=== PATIENT | female | born 2000 | race Caucasian/White ===

== ENCOUNTER 2020-06-26 08:19 | Inpatient (IN) | payer OTHER ==
[~2020-06-26] VITALS: Ht 157.5 cm; Wt 65.8 kg
[2020-06-26] MEDS ORDERED: ACET325T53 PO (08:32)
--- NOTE | 2020-06-26 08:39 | NUR ---
SUPERVISOR BAKERY SANITATION NOTES RECEIVED PT FROM AMBULANCE STAFF FROM [facility], ASSISTED TO HER ROOM, MADE COMFORTABLE, ROOM SET UP ORIENTATION PROVIDED TO PT, VERBALIZED UNDERSTANDING, PT STATES SHE FEELS BETTER, NO COMPLAINT OF PAIN, NO COMPLAINT OF DIZZINESS, ABLE TO WALK TO THE BATHROOM WITH SLOW AND STEADY GAIT, NEEDS ATTENDED.
[2020-06-26 09:00] VITALS: BP 106/68
--- NOTE | 2020-06-26 09:35 | NUR ---
MELT SUPERINTENDANT NOTES PT NSR ON THE MONITOR, DR. MARINO AT BEDSIDE.
[2020-06-26] MEDS ORDERED: DOCUSATE SODIUM 100 MG CAPSULE PO PRN (10:00)
[2020-06-26] MEDS ORDERED: MAG HYDROX/AL HYDROX/SIMETH 30 ML UDC PO PRN (10:00)
[2020-06-26] MEDS ORDERED: IV NS 0.9% 500 ML IV PRN (10:00)
[2020-06-26 11:21] LABS: BASOPHILS % (AUTO) 0.5 % (0.0-2.0); EOSINOPHILS % (AUTO) 0.6 % (0.0-6.0); HEMATOCRIT 42 % (33-45); HEMOGLOBIN 14.1 g/dL (11.5-14.8); LYMPHOCYTES # (AUTO) 1.9 /CMM (0.8-4.8); LYMPHOCYTES % (AUTO) 32.6 % (20.0-44.0); MEAN CORPUSCULAR HGB CONC 33 g/dl (31.0-36.0); MEAN CORPUSCULAR VOLUME 92 fL (82-100); MONOCYTES # (AUTO) 0.5 /CMM (0.1-1.30); MONOCYTES % (AUTO) 8.2 % (2.0-12.0); NEUTROPHILS # (AUTO) 3.5 /CMM (1.8-8.9); NEUTROPHILS % (AUTO) 58.1 % (43.0-81.0); PLATELET COUNT (AUTO) 246 /CMM (150-450); RED BLOOD CELL COUNT(AUTO) 4.62 MIL/uL (4.0-5.2)
[2020-06-26 11:33] LABS: CALCIUM, SERUM 9.3 mg/dL (8.5-10.1); CREATININE 0.7 mg/dL (0.6-1.3)
[2020-06-26 11:39] LABS: ALBUMIN 4.1 g/dL (3.4-5.0); BILIRUBIN,TOTAL 0.5 mg/dL (0.2-1.0); MAGNESIUM 1.9 mg/dL (1.8-2.4); PHOSPHORUS 3.8 mg/dL (2.5-4.9); TOTAL PROTEIN, SERUM 7.7 g/dL (6.4-8.2)
[2020-06-26 12:00] VITALS: BP_SYST 102; BP_SYST 103; BP_SYST 110; BP_DIAS 57; BP_DIAS 61; BP_DIAS 62
--- NOTE | 2020-06-26 12:50 | NUR ---
TUBE CUTTER OPERATOR NOTES PT SEEN BY DR. TALAMANTES, PLAN OF CARE DISCUSSED WITH PT, VERBALIZED UNDERSTANDING, STAT EKG DONE, RESULTS RELAYED TO DR. MARINO, NO NEW ORDER. PT IS AWAKE, NO COMPLAINTS, NOT IN DISTRESS.
[2020-06-26] MEDS: IV NS 0.9% 1,000 ML IV PRN (13:19)
[2020-06-26 16:00] VITALS: BP 88/50
[2020-06-26] MEDS: ACETAMINOPHEN 325 MG TABLET PO PRN (16:36)
[2020-06-26 18:04] LABS: BILIRUBIN,URINE NEGATIVE (NEGATIVE); COLOR,URINE YELLOW (YELLOW); LEUKOCYTE ESTERASE ,URINE NEGATIVE (NEGATIVE); NITRITE, URINE NEGATIVE (NEGATIVE); PH,URINE 6.5 (5.0-8.0); PROTEIN,URINE NEGATIVE (NEGATIVE); UGLUCOSE NEGATIVE (NEGATIVE); UROBILINOGEN,URINE 0.2 EU/dL (0.2)
--- NOTE | 2020-06-26 18:04 | NUR ---
PROFESSOR OF MATHEMATICS NOTES PT IN BED, AWAKE, ALERT AND ORIENTED, EATING DINNER, NO COMPLAINT AT THIS TIME, RESPIRATIONS NORMAL, IV FLUIDS INFUSING WELL, IV SITE AT RIGHT A/C INTACT AND PATENT, NO S/S OF INFILTRATION NOTED, ABLE TO WALK TO THE BATHROOM WITH SLOW ABND STEADY GAIT, VITALS TAKEN AND RECORDED, ALL NEEDS ATTENDED.
[2020-06-26 18:37] LABS: BACTERIA,URINE Few /HPF (None Seen); SQUAMOUS EPITHELIAL CELL,UR Few /HPF (None Seen); WBC,URINE 0-2 /HPF (0-3)
--- NOTE | 2020-06-26 19:45 | NUR ---
TELE/RN OPENING NOTE RECEIVED PATIENT RESTING IN BED. ALERT AND ORIENTED X 4. ABLE TO MAKE NEEDS KNOWN. NO COMPLAINTS OF PAIN AT THIS TIME. CONTINUES ON TELE MONITOR WITH READING OF SR HR 70-80. IV ACCESS TO RIGHT AC INTACT AND PATENT. CONTINUES ON NS @ 75ML/HR. NO COMPLAINTS OF DIZZINESS OR NAUSEA NOTED. CALL LIGHT WITHIN REACH. ASPIRATION, FALL AND SAFETY PRECAUTIONS MAINTAINED. WILL CONTINUE TO MONITOR.
[2020-06-26 20:00] VITALS: BP 85/64
--- NOTE | 2020-06-26 21:30 | NUR ---
TELE/RN NOTE PATIENT NOTED WITH BP OF 87/50. HR AND O2 SAT STABLE. NO COMPLAINTS OF DIZZINESS AT THIS TIME. NOTIFIED MACHINE PECAN PICKER JAVY WITH NEW ORDERS FOR IV BOLUS NS 1L X 1. ORDER INPUTTED AND CARRIED OUT.
[2020-06-26] MEDS ORDERED: IV NS 0.9% 1,000 ML IV ONE (21:45)
--- NOTE | 2020-06-26 22:45 | NUR ---
TELE/RN NOTE BP RECHECK AFTER BOLUS 113/61. COMPLAINTS OF HEADACHE AND NAUSEA. NO VOMITING EPISODES AT THIS TIME. WILL NOTIFY SALESPERSON AUTOMOBILES JAVY.
[2020-06-26] MEDS ORDERED: MORPHINE SULFATE INJ 2 MG/ML DISP.SYRIN IVP PRN (23:15)
--- NOTE | 2020-06-26 23:15 | NUR ---
TELE/RN NOTE NEW ORDER FOR MORPHINE IVP Q4HRS PRN FOR PAIN. ORDER INPUTTED AND CARRIED OUT.
[2020-06-27] VITALS: BP 115/62
[2020-06-27 04:00] VITALS: BP 89/60
--- NOTE | 2020-06-27 06:01 | NUR ---
TELE/RN CLOSING NOTE PATIENT CURRENTLY RESTING IN BED. ALERT AND ORIENTED X 4. ABLE TO MAKE NEEDS KNOWN. NO COMPLAINTS OF PAIN AT THIS TIME. MANUAL BP @ 0600 WAS 101/56. NO COMPLAINTS OF DIZZINESS, SOB OR NAUSEA. IV ACCESS TO RIGHT AC INTACT AND PATENT. NS RUNNING AT 75ML/HR. CALL LIGHT WITHIN REACH. ASPIRATION, FALL AND SAFETY PRECAUTIONS MAINTAINED. WILL ENDORSE PLAN OF CARE TO ONCOMING SHIFT.
[2020-06-27] MEDS: IV NS 0.9% 1,000 ML IV PRN (06:26)
[2020-06-27 06:30] LABS: BASOPHILS % (AUTO) 0.7 % (0.0-2.0); EOSINOPHILS % (AUTO) 2.1 % (0.0-6.0); HEMATOCRIT 38 % (33-45); HEMOGLOBIN 12.9 g/dL (11.5-14.8); LYMPHOCYTES # (AUTO) 2.4 /CMM (0.8-4.8); LYMPHOCYTES % (AUTO) 44.1 % (20.0-44.0); MEAN CORPUSCULAR HGB CONC 34 g/dl (31.0-36.0); MEAN CORPUSCULAR VOLUME 93 fL (82-100); MONOCYTES # (AUTO) 0.5 /CMM (0.1-1.30); MONOCYTES % (AUTO) 9.7 % (2.0-12.0); NEUTROPHILS # (AUTO) 2.4 /CMM (1.8-8.9); NEUTROPHILS % (AUTO) 43.4 % (43.0-81.0); PLATELET COUNT (AUTO) 225 /CMM (150-450); RED BLOOD CELL COUNT(AUTO) 4.13 MIL/uL (4.0-5.2); WHITE BLOOD COUNT (AUTO) 5.4 K/uL (4.3-11.0)
[2020-06-27 06:42] LABS: CALCIUM, SERUM 8.8 mg/dL (8.5-10.1); CREATININE 0.7 mg/dL (0.6-1.3); MAGNESIUM 1.8 mg/dL (1.8-2.4); PHOSPHORUS 3.7 mg/dL (2.5-4.9); POTASSIUM 3.7 mmol/L (3.5-5.1)
[2020-06-27 07:06] LABS: THYROID STIMULATING HORMONE 1.087 uIU/mL (0.358-3.74)
[2020-06-27 08:00] VITALS: BP 88/49
--- NOTE | 2020-06-27 08:05 | NUR ---
BAKERY CHEF OPENING NOTE RECEIVED PATIENT RESTING IN BED. AWAKE, A/O X 4. ABLE TO MAKE NEEDS KNOWN. NO COMPLAINTS OF PAIN AT THIS TIME. TELE MONITOR READING OF SA HR 74. IV IN RIGHT AC #20 INTACT AND PATENT - RUNNING NS @ 75ML/HR. NO COMPLAINTS OF DIZZINESS OR NAUSEA NOTED. CALL LIGHT WITHIN REACH. ASPIRATION, FALL AND SAFETY PRECAUTIONS MAINTAINED. WILL CONTINUE TO MONITOR.
--- NOTE | 2020-06-27 09:31 | NUR ---
MS RN NOTE PT BP @ 88/49 HR 74. AWARE - ORTHOSTATIC VITAL SIGNS ORDERED, IV BOLUS 1L NS ORDERED. ORTHOSTATIC VITALS AFTER BOLUS HAS BEEN COMPLETED.
[2020-06-27] MEDS ORDERED: MECLIZINE HCL 12.5 MG TABLET PO PRN (10:00)
[2020-06-27] MEDS ORDERED: IV NS 0.9% 1,000 ML IV ONE ×2 (10:00→15:00)
[2020-06-27 13:41] VITALS: BP_SYST 104; BP_SYST 94; BP_SYST 96; BP_DIAS 62; BP_DIAS 69
[2020-06-27] MEDS: ACETAMINOPHEN 325 MG TABLET PO PRN (15:38)
--- NOTE | 2020-06-27 15:40 | NUR ---
PT C/O ACHING HEADACHE AT THIS TIME ON 06/24. PT NOTED GUARDED WITH FACIAL GRIMACE. VS WNL. PER PT REQUEST, TYLENOL 650MG PO Q4HR PRN ADMINISTERED AT THIS TIME. WILL CONTINUE TO MONITOR
[2020-06-27 16:07] VITALS: BP 107/62
[2020-06-27 16:08] VITALS: BP_SYST 104; BP_SYST 107; BP_SYST 117; BP_DIAS 62; BP_DIAS 64
[2020-06-27] MEDS ORDERED: MECL-225 PO (16:09)
--- NOTE | 2020-06-27 16:47 | NUR ---
VOYAGE MANAGEMENT SYSTEM OPERATOR NOTES PT DISCHARGED HOME AT 1426. PT MEDICALLY STABLE AND CLEARED FOR DISCHARGE. ALL CARE, NEEDS, MEDICATIONS AND TREATMENT ADMINISTERED ANTICIPATED PER ORDER. ALL DISCHARGE INSTRUCTIONS PROVIDED, PT VERBALIZED UNDERSTANDING. BELONGINGS ACCOUNTED FOR, SIGNED BY PT AND WITH PT. ID BAND REMOVED. IV ACCESS REMOVED, PRESSURE APPLIED, SECURED WITH GAUZE AND TAPE. NO SIGN OF BLEEDING OR INFILTRATION NOTED. PT TRANSPORTED OUT OF UNIT BY WHEEL CHAIR IN STABLE CONDITION AT THIS TIME, ACCOMPANIED BY MADELAINE CHACKO. TONY TALAMANTES AND JAIR CHARGE NURSE AWARE. Addendum: 06/27/20 at 1915 by EFRAIN MONTOYA RN VOYAGE MANAGEMENT SYSTEM OPERATOR NOTES PT DISCHARGED HOME AT 1626. PT MEDICALLY STABLE AND CLEARED FOR DISCHARGE. ALL CARE, NEEDS, MEDICATIONS AND TREATMENT ADMINISTERED ANTICIPATED PER ORDER. ALL DISCHARGE INSTRUCTIONS PROVIDED, PT VERBALIZED UNDERSTANDING. BELONGINGS ACCOUNTED FOR, SIGNED BY PT AND WITH PT. ID BAND REMOVED. IV ACCESS REMOVED, PRESSURE APPLIED, SECURED WITH GAUZE AND TAPE. NO SIGN OF BLEEDING OR INFILTRATION NOTED. PT TRANSPORTED OUT OF UNIT BY WHEEL CHAIR IN STABLE CONDITION AT THIS TIME, ACCOMPANIED BY MADELAINE CHACKO. TONY TALAMANTES AND JAIR CHARGE NURSE AWARE.
== END 2020-06-27 16:39 | disposition home or self-care (01) | DRG 422 ==
LOC: TELE 08:19 → MED 06-27 08:17
PROVIDERS: ADMIT Registered Nurse; ATTEND Registered Nurse
DX: E86.0 Dehydration (principal); R55 Syncope and collapse; Z79.3 Long term (current) use of hormonal contraceptives; I95.9 Hypotension, unspecified
CPT/HCPCS: 36415; 80048-TC; 80053-TC; 80061-TC; 81001; 83735-TC; 84100-TC; 84443-TC; 84702-TC; 85025-TC; 87081-TC; 93307-TC; 93880-TC; G0378; J2270; J7030